=== PATIENT | male | born 1995 | race Caucasian/White ===

== ENCOUNTER 2018-04-28 03:51 | Emergency (ER) | payer OTHER ==
[2018-04-28] MEDS: AZITHROMYCIN 250 MG TAB PO (05:19)
[2018-04-28] MEDS: CEFTRIAXONE 250 MG INJ IM (05:19)
[2018-04-28 05:48] LABS: ADD UMIC YES; UR ASCORBIC ACID NEGATIVE (NEGATIVE); UR BACTERIA FEW /HPF (NONE SEEN); UR BILIRUBIN (Dip) 1+ mg/dL (NEGATIVE); UR BLOOD (Dip) NEGATIVE (NEGATIVE); UR CLARITY SLIGHTLY CLOUDY (CLEAR); UR COLOR AMBER (YELLOW); UR GLUCOSE (Dip) NEGATIVE (NEGATIVE); UR KETONES (Dip) TRACE mg/dL (NEGATIVE); UR LEUKOCYTE ESTERASE (Dip) NEGATIVE Leu/ul (NEGATIVE); UR MUCUS MANY /HPF (NONE SEEN); UR NITRITE (Dip) NEGATIVE (NEGATIVE); UR NONSQUAMOUS EPITHELIAL CELL 1 /HPF (NONE SEEN); UR RBC 0 /HPF (0-5); UR SQUAMOUS EPITHELIAL CELL FEW /HPF (FEW); UR TOTAL PROTEIN (Dip) 2+ mg/dl (NEGATIVE); UR UROBILINOGEN (Dip) 1+ mg/dL (NEGATIVE); UR WBC 1 /HPF (0-5)
== END 2018-04-28 06:04 | disposition home or self-care (01) ==
LOC: FTE 03:51
DX: R30.0 Dysuria (principal); Z20.2 Contact with and (suspected) exposure to infections with a predominantly sexual mode of transmission
CPT/HCPCS: 81001; 87591; 96372; 99284-25

== ENCOUNTER 2018-04-30 01:04 | Emergency (ER) | payer OTHER ==
[2018-04-30 04:46] LABS: URINE BLOOD (Dip) POC Negative (NEGATIVE); URINE GLUCOSE (Dip) POC Negative (NEGATIVE); URINE KETONES (Dip) POC Negative (NEGATIVE); URINE LEUKOCYTE EST (Dip) POC Negative (NEGATIVE); URINE NITRITE (Dip) POC Negative (NEGATIVE); URINE TOTAL PROTEIN POC Negative (NEGATIVE)
[2018-04-30] MEDS: PHENAZOPYRIDINE 100 MG TAB PO (04:54)
[2018-04-30] MEDS: KETOROLAC 60 MG INJ IM (04:55)
== END 2018-04-30 05:41 | disposition home or self-care (01) ==
LOC: FTE 01:04
DX: R30.0 Dysuria (principal)
CPT/HCPCS: 81003; 96372; 99284-25

== ENCOUNTER 2018-11-06 10:53 | Emergency (ER) | payer OTHER ==
[2018-11-06 13:12] LABS: ADD MAN DIFF? NO
[2018-11-06] MEDS: LIDOCAINE/MYLANTA 40 ML BTL PO (13:15)
[2018-11-06] MEDS: BELLADONNA/PHENOBARBITAL TAB PO (13:15)
[2018-11-06] MEDS: SOD CHLORIDE 0.9% 1,000 ML IV (13:15)
[2018-11-06] MEDS: KETOROLAC 30 MG INJ IV (13:16)
[2018-11-06] MEDS: morphine 4 MG/ML VIAL IV (13:16)
[2018-11-06 13:17] LABS: BASOPHILS % 0.3 % (0.0-2.0); EOSINOPHILS % 0.1 % (0.0-7.0); HEMATOCRIT 50.6 % (42.0-52.0); HEMOGLOBIN 17.3 g/dl (14.0-18.0); LYMPHOCYTES # 1.3 10^3/ul (0.8-2.9); LYMPHOCYTES % 10.2 % (15.0-51.0); MEAN CORPUSCULAR HEMOGLOBIN 30.5 pg (29.0-33.0); MEAN CORPUSCULAR HGB CONC 34.2 g/dl (32.0-37.0); MEAN CORPUSCULAR VOLUME 89.1 fl (82.0-101.0); MEAN PLATELET VOLUME 9.9 fl (7.4-10.4); MONOCYTE # 0.6 10^3/ul (0.3-0.9); MONOCYTES % 4.5 % (0.0-11.0); NEUTROPHILS % 84.1 % (39.0-77.0); PLATELET COUNT 225 10^3/UL (140-415); RED BLOOD COUNT 5.68 10^6/ul (4.70-6.10); RED CELL DISTRIBUTION WIDTH 11.9 % (11.5-14.5)
[2018-11-06 13:27] LABS: ADD UMIC NO; UR ASCORBIC ACID NEGATIVE (NEGATIVE); UR BILIRUBIN (Dip) NEGATIVE (NEGATIVE); UR BLOOD (Dip) NEGATIVE (NEGATIVE); UR CLARITY CLEAR (CLEAR); UR COLOR YELLOW (YELLOW); UR GLUCOSE (Dip) NEGATIVE (NEGATIVE); UR KETONES (Dip) NEGATIVE (NEGATIVE); UR LEUKOCYTE ESTERASE (Dip) NEGATIVE Leu/ul (NEGATIVE); UR NITRITE (Dip) NEGATIVE (NEGATIVE); UR SPECIFIC GRAVITY (Dip) 1.024 (1.003-1.030); UR TOTAL PROTEIN (Dip) NEGATIVE (NEGATIVE); UR UROBILINOGEN (Dip) NEGATIVE (NEGATIVE)
[2018-11-06] MEDS: ONDANSETRON 4 MG INJ IV (13:28)
[2018-11-06 13:34] LABS: ALANINE AMINOTRANSFERASE 62 IU/L (13-69); ALBUMIN/GLOBULIN RATIO 1.28; ALKALINE PHOSPHATASE 83 IU/L (42-121); ANION GAP 11 (5-13); ASPARTATE AMINO TRANSFERASE 34 IU/L (15-46); BILIRUBIN,INDIRECT 0.7 mg/dl (0-1.1); BILIRUBIN,TOTAL 0.7 mg/dl (0.2-1.3); BLOOD UREA NITROGEN 15 mg/dl (7-20); CALCIUM 9.9 mg/dl (8.4-10.2); CARBON DIOXIDE 29 mmol/L (21-31); CHLORIDE 104 mmol/L (97-110); CREATININE 0.95 mg/dl (0.61-1.24); Estimated GFR > 60 mL/min (>60); GLUCOSE 107 mg/dl (70-220); LIPASE 78 U/L (23-300); POTASSIUM 4.7 mmol/L (3.5-5.1); SODIUM 144 mmol/L (135-144); TOTAL PROTEIN 8.9 g/dl (6.1-8.1)
[2018-11-06] MEDS: IOHEXOL 300MG/ML 30 ML BTL (14:21)
[2018-11-06] MEDS: SOD CHLORIDE 0.9% 100 ML (14:21)
== END 2018-11-06 15:55 | disposition home or self-care (01) ==
LOC: FTE 10:53
DX: M54.9 Dorsalgia, unspecified (principal); R10.84 Generalized abdominal pain
CPT/HCPCS: 36415; 74177; 80053; 81003; 83690; 85025; 96361; 96374; 96375; 99285-25